=== PATIENT | male | born 1960 | race Caucasian/White ===

== ENCOUNTER 2019-05-24 07:44 | Day surgery (SDC) | payer BC ==
[2019-05-23 10:50] VITALS: BMI 30.7
[2019-05-24 09:23] VITALS: TEMP 97.4
[2019-05-24 09:30] VITALS: PULSE 75
[2019-05-24 11:03] VITALS: BP 136/82
--- NOTE | 2019-05-25 16:22 | PATH ---
Surgical Pathology Report Patient Name: CROW PEERA [facility]. Rec. #: [id number] /Age/Gender: 1960 (Age: 59) / M Account: [id number] Location: U-ENDOSCOPY Taken: 05/24/2019 Received: 05/24/2019 Reported: 05/25/2019 Physicians: Familia Castro M.D. Specimen(s) Received A: ASCENDING COLON POLYP B: POLYP SIGMOID C: RECTAL POLYP Clinical History Colon screening Postoperative diagnosis: Diverticulosis, polyps Final Diagnosis A. ASCENDING COLON POLYP, POLYPECTOMY: TUBULAR ADENOMA. B. SIGMOID POLYP, POLYPECTOMY: HYPERPLASTIC POLYP. C. RECTAL POLYP, POLYPECTOMY: TUBULAR ADENOMA. Electronically Signed Porfirio Sharpe M.D. Gross Description A. Received in formalin, labeled "polyp ascending colon" is a de la rosa, irregular portion of soft tissue measuring 0.3 cm. in greatest dimension. The specimen is submitted in toto in one cassette. B. Received in formalin, labeled "sigmoid polyp" is a de [place] rosa, irregular portion of soft tissue measuring 0.4 cm. in greatest dimension. The specimen is submitted in toto in one cassette. C. Received in formalin, labeled "biopsy rectal polyp" is a de la rosa, irregular portion of soft tissue measuring 0.3 cm. in greatest dimension. The specimen is submitted in toto in one cassette. /05/24/2019 saudi05/24/2019
== END 2019-05-24 10:10 | disposition home or self-care (01) ==
LOC: JASU-ENDO 07:44
PROVIDERS: ATTEND Internal Medicine Gastroenterology
PROC: 0DBN8ZX Excision of Sigmoid Colon, Via Natural or Artificial Opening Endoscopic, Diagnostic (ICD-10-PCS; 2019-05-24)
PROC: 0DBF8ZX Excision of Right Large Intestine, Via Natural or Artificial Opening Endoscopic, Diagnostic (ICD-10-PCS; 2019-05-24)
PROC: 0DBP8ZX Excision of Rectum, Via Natural or Artificial Opening Endoscopic, Diagnostic (ICD-10-PCS; 2019-05-24)
PROC: 0DBK8ZX Excision of Ascending Colon, Via Natural or Artificial Opening Endoscopic, Diagnostic (ICD-10-PCS; principal; 2019-05-24 08:45)
DX: Z12.11 Encounter for screening for malignant neoplasm of colon (principal); D12.2 Benign neoplasm of ascending colon; D12.5 Benign neoplasm of sigmoid colon; K62.1 Rectal polyp; K57.30 Diverticulosis of large intestine without perforation or abscess without bleeding
CPT/HCPCS: 88305-TC

== ENCOUNTER 2023-05-21 04:37 | Day surgery (SDC) | payer OTHER ==
[2023-05-20 09:07] VITALS: BMI 31.2
[2023-05-21 10:04] VITALS: TEMP 97.3
[2023-05-21 10:33] VITALS: BP 118/65; PULSE 67; RESP 19
== END 2023-05-21 11:09 | disposition home or self-care (01) ==
LOC: JASU-ENDO 04:37
PROVIDERS: ATTEND Internal Medicine Gastroenterology
PROC: 0DBL8ZX Excision of Transverse Colon, Via Natural or Artificial Opening Endoscopic, Diagnostic (ICD-10-PCS; 2023-05-21)
PROC: 0DBK8ZX Excision of Ascending Colon, Via Natural or Artificial Opening Endoscopic, Diagnostic (ICD-10-PCS; principal; 2023-05-21 09:00)
DX: Z12.11 Encounter for screening for malignant neoplasm of colon (principal); D12.2 Benign neoplasm of ascending colon; D12.3 Benign neoplasm of transverse colon; K64.8 Other hemorrhoids; K57.30 Diverticulosis of large intestine without perforation or abscess without bleeding; Z86.010 Personal history of colon polyps; I10 Essential (primary) hypertension
CPT/HCPCS: 88305-TC